=== PATIENT | female | born 1980 | race Caucasian/White ===

== ENCOUNTER 2018-04-21 10:17 | Emergency (ER) | payer OTHER ==
[2018-04-21] MEDS: IBUPROFEN 800 MG TAB PO (10:44)
[2018-04-21] MEDS: LIDOCAINE 5% PATCH TD (10:46)
== END 2018-04-21 11:14 | disposition home or self-care (01) ==
LOC: FTE 10:17
DX: S76.012A Strain of muscle, fascia and tendon of left hip, initial encounter (principal); R40.2412 Glasgow coma scale score 13-15, at arrival to emergency department; X50.0XXA Overexertion from strenuous movement or load, initial encounter; Y92.9 Unspecified place or not applicable
CPT/HCPCS: 99282; Z7502